=== PATIENT | male | born 1990 | race Caucasian/White ===

== ENCOUNTER 2018-07-22 21:51 | Emergency (ER) | payer SELFPAY ==
[2018-07-22] MEDS ORDERED: LORazepam 1 MG Tab PO ONE (21:52)
--- NOTE | 2018-07-22 22:17 | EDM.PDOC ---
ED HPI GENERAL MEDICAL PROBLEM - General Chief Complaint: Chest Pain Stated Complaint: CHEST PAIN,DIZZY,SWELLING [id number] Time Seen by Provider: 07/22/18 22:12 Source of Information: Reports: Patient History Limitations: Reports: No Limitations - History of Present Illness INITIAL COMMENTS - FREE TEXT/NARRATIVE: pt somewhat vague with HPI. states felt swelling in left armpit area but feels like it's on the inside of his chest, doesn't seem to bother him too much, then 3 days ago started pain in that area that seems always there and sometimes it gets sharp the goes away. tonight still having all this and got worried. works as [employer]. also not sure if it's anxiety since under alot of pressure. Left Chest Pain Score (Numeric/FACES): 7 - Related Data Allergies Allergy/AdvReac Type Severity Reaction Status Date / Time cefaclor [From [facility]] Allergy Hives Verified 07/22/18 21:58 Sulfa (Sulfonamide Allergy Hives Verified 07/22/18 21:58 Antibiotics) another antibiotic Allergy Hives Uncoded 07/22/18 21:58 Home Meds: Home Meds Escitalopram [Lexapro] 20 mg PO DAILY 10/01/13 [History] Social & Family History - Tobacco Use Smoking Status *Q: Current Every Day Smoker Years of Tobacco use: 11 Packs/Tins Daily: 1 - Caffeine Use Caffeine Use: Reports: Energy Drinks, Soda - Recreational Drug Use Recreational Drug Use: No ED ROS GENERAL - Review of Systems Review Of Systems: ROS reveals no pertinent complaints other than HPI. ED EXAM, GENERAL - Physical Exam Exam: See Below Exam Limited By: No Limitations General Appearance: Alert, WD/WN, Mild Distress, Other (distraught) Ears: Hearing Grossly Normal Throat/Mouth: Normal Voice, No Airway Compromise Head: Atraumatic Neck: Non-Tender, Full Range of Motion Respiratory/Chest: No Respiratory Distress, Lungs Clear, Normal Breath Sounds Cardiovascular: Regular Rate, Rhythm GI/Abdominal: Soft, Non-Tender Neurological: Alert, Oriented, Normal Cognition, Normal Gait, No Motor/Sensory Deficits Psychiatric: Flat Affect Skin Exam: Warm, Dry, Normal Color Lymphatic: No Adenopathy Course - Vital Signs Last Recorded V/S: Last Vital Signs Temp 36.8 C 07/22/18 21:58 Pulse 73 07/22/18 21:58 Resp 15 07/22/18 21:58 BP 158/74 H 07/22/18 21:58 Pulse Ox 100 07/22/18 21:58 - Orders/Labs/Meds Orders: Active Orders 24 hr Category Date Time Status EKG 12 Lead [EKG Documentation Completion] [RC] STAT Care 07/22/18 22:03 Active Labs: Laboratory Tests 07/22/18 07/22/18 07/22/18 Range/Units 22:08 22:08 22:08 WBC 6.1 (5.0-10.0) 10^3/uL RBC 5.18 (4.6-6.2) 10^6/uL Hgb 15.6 (14.0-18.0) g/dL Hct 46.0 (40.0-54.0) % MCV 88.8 (80-100) fL MCH 30.1 (27.0-34.0) pg MCHC 33.9 (33.0-35.0) g/dL Plt Count 204 (150-450) 10^3/uL Neut % (Auto) 45.8 (42.2-75.2) % Lymph % (Auto) 39.0 (20.5-50.1) % [place] % (Auto) 10.4 H (2-8) % Eos % (Auto) 4.0 H (1.0-3.0) % Baso % (Auto) 0.8 (0.0-1.0) % D-Dimer, Quantitative < 100 (0-400) ng/mL Sodium 138 (135-145) mmol/L Potassium 3.7 (3.6-5.0) mmol/L Chloride 103 (101-111) mmol/L Carbon Dioxide 25.0 (21.0-31.0) mmol/L Anion Gap 13.7 BUN 11 (7-18) mg/dL Creatinine 0.9 (0.6-1.3) mg/dL Est Cr Clr Drug Dosing 159.39 mL/min Estimated GFR (MDRD) > 60 BUN/Creatinine Ratio 12.22 Glucose 104 (74-105) mg/dL Calcium 9.1 (8.4-10.2) mg/dl Total Bilirubin 0.6 (0.2-1.0) mg/dL AST 24 (10-42) IU/L ALT 47 (10-60) IU/L Alkaline Phosphatase 52 (42-121) IU/L Troponin I < 0.02 (0.00-0.02) ng/ml Total Protein 6.8 (6.7-8.2) g/dl Albumin 4.1 (3.2-5.5) g/dl Globulin 2.7 Albumin/Globulin Ratio 1.52 - Re-Assessments/Exams Free Text/Narrative Re-Assessment/Exam: 07/22/18 23:36 results discussed with pt who is feeling better but not 100% Departure - Departure Time of Disposition: 23:36 Disposition: Home, Self-Care 01 Condition: Good Clinical Impression: Atypical chest pain Instructions: Nonspecific Chest Pain, [id number] Forms: ED Department Discharge Additional Instructions: 1) rest and avoid vigorous activities 2) follow up at clinic rx togo; ativan 1mg x 1 - My Orders Last 24 Hours: My Active Orders 07/22/18 22:03 EKG 12 Lead [EKG Documentation Completion] [RC] STAT - Assessment/Plan Last 24 Hours: My Active Orders 07/22/18 22:03 EKG 12 Lead [EKG Documentation Completion] [RC] STAT
[2018-07-22 22:35] LABS: ANION GAP 13.7; CHLORIDE,CL 103 mmol/L (101-111); SODIUM,NA 138 mmol/L (135-145)
[2018-07-22] MEDS ORDERED: LORazepam 1 MG Tab ONE (23:38)
== END 2018-07-22 23:52 | disposition home or self-care (01) ==
LOC: DL.ED 21:51
DX: R07.89 Other chest pain (principal); F17.210 Nicotine dependence, cigarettes, uncomplicated; Z88.2 Allergy status to sulfonamides; Z88.8 Allergy status to other drugs, medicaments and biological substances; Z88.1 Allergy status to other antibiotic agents; Z79.899 Other long term (current) drug therapy
CPT/HCPCS: 36415; 71045; 80053; 84484; 85025; 85379; 93005; 99285-25

== ENCOUNTER 2020-03-23 11:25 | Emergency (ER) | payer SELFPAY ==
--- NOTE | 2020-03-23 12:25 | EDM.PDOC ---
Scribed by Dinora García 03/23/20 1225 for Beatriz Gauthier NP ED HPI GENERAL MEDICAL PROBLEM - General Chief Complaint: ENT Problem Stated Complaint: SORE THROAT Time Seen by Provider: 03/23/20 12:00 Source of Information: Reports: Patient, RN, RN Notes Reviewed History Limitations: Reports: No Limitations - History of Present Illness INITIAL COMMENTS - FREE TEXT/NARRATIVE: Patient is a 29-year-old male who presents to ER with complaint of sore throat since , progressively getting worse. Hrts worse on the left side. He denies fever, chills, nausea, vomiting, diarrhea, shortness of breath, cough or stomach pain. Denies any other symptoms or known COVID exposure. Onset Date: 03/20/20 Duration: Getting Worse Location: Reports: Other (throat) Quality: Reports: Ache Severity: Moderate Improves with: Reports: None Worsens with: Reports: None Associated Symptoms: Reports: No Other Symptoms - Related Data Allergies Allergy/AdvReac Type Severity Reaction Status Date / Time cefaclor [From Ceclor] Allergy Hives Verified 03/23/20 11:49 Sulfa (Sulfonamide Allergy Hives Verified 03/23/20 11:49 Antibiotics) another antibiotic Allergy Hives Uncoded 03/23/20 11:49 Home Meds: Home Meds Escitalopram [Lexapro] 20 mg PO DAILY 10/01/13 [History] Past Medical History HEENT History: Reports: Impaired Vision, Other (See Below) Other HEENT History: strep throat Cardiovascular History: Reports: None Respiratory History: Reports: None Gastrointestinal History: Reports: None Genitourinary History: Reports: None Musculoskeletal History: Reports: None Neurological History: Reports: None Psychiatric History: Reports: Depression Endocrine/Metabolic History: Reports: None Hematologic History: Reports: None Dermatologic History: Reports: None Social & Family History - Tobacco Use Tobacco Use Status *Q: Current Every Day Tobacco User Years of Tobacco use: 10 Packs/Tins Daily: 1 - Caffeine Use Caffeine Use: Reports: Energy Drinks, Soda ED ROS ENT - Review of Systems Review Of Systems: Comprehensive ROS is negative, except as noted in HPI. ED EXAM, ENT - Physical Exam Exam: See Below Exam Limited By: No Limitations General Appearance: Alert, WD/WN, No Apparent Distress Eye Exam: Bilateral Eye: EOMI, Normal Inspection, PERRL Ears: Normal External Exam, Normal Canal, Hearing Grossly Normal, Normal TMs Nose: Normal Inspection, Normal Mucousa, No Blood Mouth/Throat: Other (tonsils +2 bilaterally. Erythema with white patches--oropharynx. ) Head: Atraumatic, Normocephalic Neck: Normal Inspection, Supple, Non-Tender, Full Range of Motion Respiratory/Chest: No Respiratory Distress, Lungs Clear, Normal Breath Sounds, No Accessory Muscle Use, Chest Non-Tender Cardiovascular: Normal Peripheral Pulses, Regular Rate, Rhythm, No Edema, No Gallop, No JVD, No Murmur, No Rub GI/Abdominal: Normal Bowel Sounds, Soft, Non-Tender, No Organomegaly, No Distention, No Abnormal Bruit, No Mass (Male) Exam: Deferred Rectal (Males) Exam: Deferred Back: Normal Inspection, Full Range of Motion Extremities: Normal Inspection, Normal Range of Motion, Non-Tender, No Pedal Edema, Normal Capillary Refill Neurological: Alert, Oriented, CN II-XII Intact, Normal Cognition, Normal Gait, Normal Reflexes, No Motor/Sensory Deficits Psychiatric: Normal Affect, Normal Mood Skin: Warm, Dry, Intact, Normal Color, No Rash Lymphatic: Other (+1 anterior cervical bilateral) Course - Vital Signs Last Recorded V/S: Last Vital Signs Temp 97.6 F 03/23/20 11:45 Pulse 85 03/23/20 11:45 Resp 18 03/23/20 11:45 BP 128/83 03/23/20 11:45 Pulse Ox 97 03/23/20 11:45 - Orders/Labs/Meds Orders: Active Orders 24 hr Category Date Time Status CULTURE STREP A CONFIRMATION [] Stat Lab 03/23/20 12:04 Results STREP SCRN A RAPID W CULT CONF [RM] Stat Lab 03/23/20 12:04 Results Labs: Rapid Strep: NEGATIVE Departure - Departure Time of Disposition: 12:23 Disposition: Home, Self-Care 01 Condition: Good Clinical Impression: Tonsillitis Pharyngitis Qualifiers: Pharyngitis/tonsillitis etiology: unspecified etiology Qualified Code(s): J02.9 - Acute pharyngitis, unspecified - Discharge Information *PRESCRIPTION DRUG MONITORING PROGRAM REVIEWED*: No *COPY OF PRESCRIPTION DRUG MONITORING REPORT IN PATIENT LOPEZ: No Instructions: Sore Throat, [id number], Tonsillitis, [id number], Pharyngitis, [id number] Forms: ED Department Discharge Additional Instructions: Rx: Amoxicillin Salt water gargles 3-4 times a day Follow-up with your primary care provider in the clinic next week if no improvement May use [id number] Chloraseptic for pain in the throat May use Tylenol and/or ibuprofen as directed for fever and pain Sepsis Event Note (ED) - Evaluation Sepsis Screening Result: No Definite Risk - Focused Exam Vital Signs: Vital Signs Temp Pulse Resp BP Pulse Ox 03/23/20 11:45 97.6 F 85 18 128/83 97 - My Orders Last 24 Hours: My Active Orders 03/23/20 12:04 CULTURE STREP A CONFIRMATION [RM] Stat STREP SCRN A RAPID W CULT CONF [RM] Stat - Assessment/Plan Last 24 Hours: My Active Orders 03/23/20 12:04 CULTURE STREP A CONFIRMATION [RM] Stat STREP SCRN A RAPID W CULT CONF [RM] Stat I have read and agree with the documentation that has been completed regarding this visit. By signing this record, I attest that the documentation was completed in my physical presence and is an accurate record of the encounter.
== END 2020-03-23 12:28 | disposition home or self-care (01) ==
LOC: DL.ED 11:25
DX: J03.90 Acute tonsillitis, unspecified (principal); F17.210 Nicotine dependence, cigarettes, uncomplicated; F32.9 Major depressive disorder, single episode, unspecified; Z79.899 Other long term (current) drug therapy; Z88.1 Allergy status to other antibiotic agents; Z88.2 Allergy status to sulfonamides
CPT/HCPCS: 87081; 87430; 99283

== ENCOUNTER 2020-03-24 20:11 | Emergency (ER) | payer SELFPAY ==
--- NOTE | 2020-03-24 21:28 | EDM.PDOC ---
ED HPI GENERAL MEDICAL PROBLEM - General Chief Complaint: ENT Problem Stated Complaint: SORE THROAT Time Seen by Provider: 03/24/20 21:22 Source of Information: Reports: Patient History Limitations: Reports: No Limitations - History of Present Illness INITIAL COMMENTS - FREE TEXT/NARRATIVE: This 29 yo male patient reports to the ED with continued sore throat. The patient was seen in the ED yesterday, had a negative Strep test and was started on Amoxicillin (3 doses). The patient reports he did take his antibiotic, but has not attempted to follow-up with his primary care facility. Duration: Day(s):, Constant Location: Reports: Neck Quality: Reports: Ache, Dull Severity: Moderate Improves with: Reports: None Worsens with: Reports: None Context: Reports: Other Associated Symptoms: Reports: No Other Symptoms Throat Pain Score (Numeric/FACES): 5 - Related Data Allergies Allergy/AdvReac Type Severity Reaction Status Date / Time cefaclor [From Ceclor] Allergy Hives Verified 03/24/20 20:34 Sulfa (Sulfonamide Allergy Hives Verified 03/24/20 20:34 Antibiotics) another antibiotic Allergy Hives Uncoded 03/24/20 20:34 Home Meds: Home Meds Escitalopram [Lexapro] 20 mg PO DAILY 10/01/13 [History] Past Medical History HEENT History: Reports: Impaired Vision, Other (See Below) Other HEENT History: strep throat Cardiovascular History: Reports: None Respiratory History: Reports: None Gastrointestinal History: Reports: None Genitourinary History: Reports: None Musculoskeletal History: Reports: None Neurological History: Reports: None Psychiatric History: Reports: Depression Endocrine/Metabolic History: Reports: None Hematologic History: Reports: None Dermatologic History: Reports: None Social & Family History - Tobacco Use Tobacco Use Status *Q: Current Every Day Tobacco User Years of Tobacco use: 13 Packs/Tins Daily: 1 Second Hand Smoke Exposure: Yes - Caffeine Use Caffeine Use: Reports: Energy Drinks, Soda - Recreational Drug Use Recreational Drug Use: No ED ROS ENT - Review of Systems Review Of Systems: Comprehensive ROS is negative, except as noted in HPI. ED EXAM, ENT - Physical Exam Exam: See Below Exam Limited By: No Limitations General Appearance: Alert, WD/WN, Mild Distress Eye Exam: Bilateral Eye: EOMI, Normal Inspection, PERRL Ears: Normal External Exam, Normal Canal, Hearing Grossly Normal, Normal TMs Nose: Normal Inspection, Normal Mucousa, No Blood Mouth/Throat: Pharyngeal Erythema, Tonsillar Erythema (left side), Tonsillar Exudates (left side) Head: Atraumatic, Normocephalic Neck: Lymphadenopathy (L) (left cervicle ) Respiratory/Chest: No Respiratory Distress, Lungs Clear, Normal Breath Sounds, No Accessory Muscle Use, Chest Non-Tender Cardiovascular: Normal Peripheral Pulses, Regular Rate, Rhythm, No Edema, No Gallop, No JVD, No Murmur, No Rub GI/Abdominal: Normal Bowel Sounds, Soft, Non-Tender, No Organomegaly, No Distention, No Abnormal Bruit, No Mass (Male) Exam: Deferred Rectal (Males) Exam: Deferred Back: Normal Inspection, Full Range of Motion Extremities: Normal Inspection, Normal Range of Motion, Non-Tender, No Pedal Edema, Normal Capillary Refill Neurological: Alert, Oriented, CN II-XII Intact, Normal Cognition, Normal Gait, Normal Reflexes, No Motor/Sensory Deficits Psychiatric: Normal Affect, Normal Mood Skin: Warm, Dry, Intact, Normal Color, No Rash Lymphatic: No Adenopathy Course - Vital Signs Last Recorded V/S: Last Vital Signs Temp 36.4 C 03/24/20 20:29 Pulse 101 H 03/24/20 20:29 Resp 18 03/24/20 20:29 BP 121/81 03/24/20 20:29 Pulse Ox 97 03/24/20 20:29 Departure - Departure Time of Disposition: 21:40 Disposition: Against Medical Advice 07 Condition: Undetermined Clinical Impression: Left against medical advice - Discharge Information *PRESCRIPTION DRUG MONITORING PROGRAM REVIEWED*: Not Applicable *COPY OF PRESCRIPTION DRUG MONITORING REPORT IN PATIENT LOPEZ: Not Applicable Forms: ED Department Discharge Care Plan Goals: The patient left prior to lab testing being drawn or completed against medical advice. Sepsis Event Note (ED) - Evaluation Sepsis Screening Result: No Definite Risk - Focused Exam Vital Signs: Vital Signs Temp Pulse Resp BP Pulse Ox 03/24/20 20:29 36.4 C 101 H 18 121/81 97
== END 2020-03-24 21:40 | disposition left against medical advice (07) ==
LOC: DL.ED 20:11
DX: J02.9 Acute pharyngitis, unspecified (principal); Z53.20 Procedure and treatment not carried out because of patient's decision for unspecified reasons; F32.9 Major depressive disorder, single episode, unspecified; Z88.2 Allergy status to sulfonamides; Z88.1 Allergy status to other antibiotic agents; F17.210 Nicotine dependence, cigarettes, uncomplicated; Z79.899 Other long term (current) drug therapy
CPT/HCPCS: 99282